=== PATIENT | female | born 1935 | race Caucasian/White ===

== ENCOUNTER → 2017-12-13 10:25 | Outpatient (CLI) | payer SELFPAY ==
[2017-12-13 12:48] LABS: HCT 40.7 % (36.0-46.0); HGB 12.9 g/dL (12.0-15.5); Mean Corp. HGB Concentration 31.7 g/dL (32.0-36.0); Mean Corpuscular Hemoglobin 29.7 pg (27.0-33.0); Mean Corpuscular Volume 93.8 fL (80-95); Mean Platelet Volume 11.9 fL (8.0-11.0); Platelet Count 283 x1000/uL (130-400); RBC 4.34 m/cumm (4.00-5.20); RBC Distribution Width 14.3 % (11.7-14.6); White Blood Cell Count 8.63 k/cumm (4.4-10.8)
[2017-12-13 13:00] LABS: Iron 57 ug/dL (50-175)
[2017-12-13 13:13] LABS: Ferritin 290 ng/mL (8-388)
[2017-12-13 13:22] LABS: Prothrombin Time 9.4 sec (9.3-10.8)
== END ==
PROVIDERS: PCP Family Medicine; Visit Provider Family Medicine
DX: D64.9 Anemia, unspecified (principal); D50.9 Iron deficiency anemia, unspecified; I48.91 Unspecified atrial fibrillation; Z79.01 Long term (current) use of anticoagulants
CPT/HCPCS: 36415; 85027; 82728; 83540; 85610

== ENCOUNTER → 2017-12-16 04:27 | Outpatient (CLI) | payer SELFPAY ==
[2017-12-16 11:22] LABS: INR 1.1 (1.0-3.5); Prothrombin Time 11.2 sec (9.3-10.8)
[2017-12-16 11:27] LABS: Hemoglobin A1C 6.2 % (4.5-6.2)
[2017-12-16 11:30] LABS: Anion Gap 12.1 mmol/L (3-11); BUN 18 mg/dL (7-18); CO2 27.9 mmol/L (21.0-32.0); CREATININE 0.84 mg/dL (0.55-1.02); Calcium 9.1 mg/dL (8.5-10.1); Chloride 103 mmol/L (98-107); Glucose 231 mg/dL (70-100); Potassium 4.1 mmol/L (3.5-5.1); Sodium 143 mmol/L (136-145)
[2017-12-16 22:43] LABS: T3, Total 96 ng/dl (97-169)
== END ==
PROVIDERS: PCP Family Medicine; Visit Provider Family Medicine
DX: E11.9 Type 2 diabetes mellitus without complications (principal); I10 Essential (primary) hypertension; I48.91 Unspecified atrial fibrillation; Z79.01 Long term (current) use of anticoagulants; R94.6 Abnormal results of thyroid function studies
CPT/HCPCS: 36415; 80048; 83036; 84439; 84480; 85610

== ENCOUNTER → 2017-12-19 02:56 | Outpatient (CLI) | payer SELFPAY ==
[2017-12-19 11:11] LABS: Prothrombin Time 28.2 sec (9.3-10.8)
== END ==
PROVIDERS: PCP Family Medicine; Visit Provider Family Medicine
DX: I48.91 Unspecified atrial fibrillation (principal); Z79.01 Long term (current) use of anticoagulants
CPT/HCPCS: 36415; 85610

== ENCOUNTER 2017-12-27 02:36 | Outpatient (CLI) | payer SELFPAY ==
[2017-12-27 12:32] LABS: INR 7.6 (1.0-3.5); Prothrombin Time 68.6 sec (9.3-10.8)
== END 2017-12-27 02:56 ==
PROVIDERS: PCP Family Medicine; Visit Provider Family Medicine
DX: I48.91 Unspecified atrial fibrillation (principal); Z79.01 Long term (current) use of anticoagulants
CPT/HCPCS: 36415; 85610

== ENCOUNTER 2017-12-30 03:40 | Outpatient (CLI) | payer SELFPAY ==
[2017-12-30 11:55] LABS: INR 3.5 (1.0-3.5); Prothrombin Time 32.8 sec (9.3-10.8)
== END 2017-12-30 04:00 ==
LOC: LBO 08:06 → LOS 08:10
PROVIDERS: PCP Family Medicine; Visit Provider Family Medicine
DX: I48.91 Unspecified atrial fibrillation (principal); Z79.01 Long term (current) use of anticoagulants
CPT/HCPCS: 36415; 85610

== ENCOUNTER 2018-01-06 01:38 | Outpatient (CLI) | payer SELFPAY ==
[2018-01-06 11:54] LABS: INR 1.3 (1.0-3.5); Prothrombin Time 12.6 sec (9.3-10.8)
== END 2018-01-06 01:58 ==
PROVIDERS: PCP Family Medicine; Visit Provider Family Medicine
DX: I48.91 Unspecified atrial fibrillation (principal); Z79.01 Long term (current) use of anticoagulants
CPT/HCPCS: 36415; 85610

== ENCOUNTER 2018-01-11 02:45 | Outpatient (CLI) | payer SELFPAY ==
[2018-01-11 10:50] LABS: INR 2.6 (1.0-3.5); Prothrombin Time 24.7 sec (9.3-10.8)
== END 2018-01-11 03:05 ==
PROVIDERS: PCP Family Medicine; Visit Provider Family Medicine
DX: I48.91 Unspecified atrial fibrillation (principal); Z79.01 Long term (current) use of anticoagulants
CPT/HCPCS: 36415; 85610

== ENCOUNTER 2018-01-18 02:24 | Outpatient (CLI) | payer SELFPAY ==
[2018-01-18 11:29] LABS: INR 3.9 (1.0-3.5)
== END 2018-01-18 02:44 ==
PROVIDERS: PCP Family Medicine; Visit Provider Family Medicine
DX: I48.91 Unspecified atrial fibrillation (principal); Z79.01 Long term (current) use of anticoagulants
CPT/HCPCS: 36415; 85610

== ENCOUNTER 2018-01-25 02:08 | Outpatient (CLI) | payer SELFPAY ==
[2018-01-25 11:45] LABS: Prothrombin Time 37.6 sec (9.3-10.8)
== END 2018-01-25 02:28 ==
PROVIDERS: PCP Family Medicine; Visit Provider Family Medicine
DX: I48.91 Unspecified atrial fibrillation (principal); Z79.01 Long term (current) use of anticoagulants
CPT/HCPCS: 36415; 85610

== ENCOUNTER 2018-02-02 02:10 | Outpatient (CLI) | payer MEDICARE, SELFPAY ==
[2018-02-02 11:38] LABS: Prothrombin Time 36.9 sec (9.3-10.8)
== END 2018-02-02 02:30 ==
PROVIDERS: PCP Family Medicine; Visit Provider Family Medicine
DX: I48.91 Unspecified atrial fibrillation (principal); Z79.01 Long term (current) use of anticoagulants
CPT/HCPCS: 36415; 85610

== ENCOUNTER 2018-02-03 01:51 | Outpatient (CLI) | payer SELFPAY, MEDICARE ==
[2018-02-03 11:27] LABS: INR 3.1 (1.0-3.5); Prothrombin Time 28.7 sec (9.3-10.8)
== END 2018-02-03 02:11 ==
PROVIDERS: PCP Family Medicine; Visit Provider Family Medicine
DX: I48.91 Unspecified atrial fibrillation (principal); Z79.01 Long term (current) use of anticoagulants
CPT/HCPCS: 36415; 85610

== ENCOUNTER 2018-02-10 02:45 | Outpatient (CLI) | payer SELFPAY ==
[2018-02-10 11:31] LABS: INR 1.5 (1.0-3.5); Prothrombin Time 14.5 sec (9.3-10.8)
== END 2018-02-10 03:05 ==
PROVIDERS: PCP Family Medicine; Visit Provider Family Medicine
DX: I48.91 Unspecified atrial fibrillation (principal); Z79.01 Long term (current) use of anticoagulants
CPT/HCPCS: 36415; 85610

== ENCOUNTER 2018-03-03 02:15 | Outpatient (CLI) | payer SELFPAY ==
[2018-03-03 11:33] LABS: INR 1.4 (1.0-3.5); Prothrombin Time 13.3 sec (9.3-10.8)
== END 2018-03-03 02:35 ==
PROVIDERS: PCP Family Medicine; Visit Provider Family Medicine
DX: I48.91 Unspecified atrial fibrillation (principal); Z79.01 Long term (current) use of anticoagulants
CPT/HCPCS: 36415; 85610

== ENCOUNTER 2018-03-10 15:32 | Outpatient (CLI) | payer SELFPAY ==
[2018-03-10 11:12] LABS: INR 3.2 (1.0-3.5); Prothrombin Time 29.7 sec (9.3-10.8)
== END 2018-03-10 15:52 ==
PROVIDERS: PCP Family Medicine; Visit Provider Family Medicine
DX: I48.91 Unspecified atrial fibrillation (principal); Z79.01 Long term (current) use of anticoagulants
CPT/HCPCS: 36415; 85610

== ENCOUNTER 2018-03-23 07:13 | Outpatient (CLI) | payer MEDICARE, SELFPAY ==
[2018-03-23 11:45] LABS: INR 1.7 (1.0-3.5); Prothrombin Time 16.3 sec (9.3-10.8)
== END 2018-03-23 07:33 ==
LOC: LBO 08:28 → LOS 08:29
PROVIDERS: PCP Family Medicine; Visit Provider Family Medicine
DX: I48.91 Unspecified atrial fibrillation (principal); Z79.01 Long term (current) use of anticoagulants
CPT/HCPCS: 36415; 85610

== ENCOUNTER 2018-03-31 02:30 | Outpatient (CLI) | payer MEDICARE, SELFPAY ==
[2018-03-31 12:12] LABS: INR 2.7 (1.0-3.5); Prothrombin Time 25.9 sec (9.3-10.8)
== END 2018-03-31 02:50 ==
PROVIDERS: PCP Family Medicine; Visit Provider Family Medicine
DX: I48.91 Unspecified atrial fibrillation (principal); Z79.01 Long term (current) use of anticoagulants
CPT/HCPCS: 36415; 85610

== ENCOUNTER 2018-04-14 02:11 | Outpatient (CLI) | payer MEDICARE, SELFPAY ==
[2018-04-14 11:47] LABS: INR 3.7 (1.0-3.5)
== END 2018-04-14 02:31 ==
PROVIDERS: PCP Family Medicine; Visit Provider Family Medicine
DX: I48.91 Unspecified atrial fibrillation (principal); Z79.01 Long term (current) use of anticoagulants
CPT/HCPCS: 36415; 85610

== ENCOUNTER 2018-04-21 02:31 | Outpatient (CLI) | payer SELFPAY ==
[2018-04-21 11:47] LABS: INR 4.3 (1.0-3.5)
== END 2018-04-21 02:51 ==
PROVIDERS: PCP Family Medicine; Visit Provider Family Medicine
DX: I48.91 Unspecified atrial fibrillation (principal); Z79.01 Long term (current) use of anticoagulants
CPT/HCPCS: 36415; 85610

== ENCOUNTER 2018-04-27 11:33 | Outpatient (CLI) | payer MEDICARE, SELFPAY ==
[2018-04-27 13:05] LABS: HCT 41.1 % (36.0-46.0); HGB 13.2 g/dL (12.0-15.5); Mean Corp. HGB Concentration 32.1 g/dL (32.0-36.0); Mean Corpuscular Hemoglobin 29.9 pg (27.0-33.0); Mean Corpuscular Volume 93.2 fL (80-95); Mean Platelet Volume 11.1 fL (8.0-11.0); Platelet Count 342 x1000/uL (130-400); RBC 4.41 m/cumm (4.00-5.20); RBC Distribution Width 13.8 % (11.7-14.6); White Blood Cell Count 10.68 k/cumm (4.4-10.8)
[2018-04-27 13:21] LABS: INR 1.7 (0.9-1.1); Prothrombin Time 16.6 sec (9.3-11.0)
[2018-04-27 13:39] LABS: Iron 101 ug/dL (50-175); Total Iron Binding Capacity 190 ug/dL (250-450); Transferrin Sat 53 % (15-50)
[2018-04-27 13:40] LABS: ALT 24 U/L (12-78); AST 24 U/L (15-37); Albumin 3.4 g/dL (3.4-5.0); Alkaline Phosphatase 79 U/L (46-116); Anion Gap 11.4 mmol/L (3-11); BUN 22 mg/dL (7-18); Bilirubin, Total 0.7 mg/dL (0.2-1.0); CO2 26.6 mmol/L (21.0-32.0); Calcium 9.4 mg/dL (8.5-10.1); Chloride 104 mmol/L (98-107); Glucose 185 mg/dL (70-100); Potassium 4.8 mmol/L (3.5-5.1); Sodium 142 mmol/L (136-145); Total Protein 7.3 g/dL (6.4-8.2)
[2018-05-01 10:33] LABS: Ferritin 477 ng/mL (8-388)
== END 2018-04-27 11:53 ==
PROVIDERS: PCP Family Medicine; Visit Provider Family Medicine
DX: D64.9 Anemia, unspecified (principal); I48.91 Unspecified atrial fibrillation; Z86.2 Personal history of diseases of the blood and blood-forming organs and certain disorders involving the immune mechanism
CPT/HCPCS: 36415; 80053; 85027; 82728; 83540; 83550; 85610

== ENCOUNTER 2018-05-04 01:25 | Outpatient (CLI) | payer SELFPAY ==
[2018-05-04 11:18] LABS: INR 1.5 (0.9-1.1); Prothrombin Time 15.4 sec (9.3-11.0)
== END 2018-05-04 01:45 ==
PROVIDERS: PCP Family Medicine; Visit Provider Family Medicine
DX: I48.91 Unspecified atrial fibrillation (principal); Z79.01 Long term (current) use of anticoagulants
CPT/HCPCS: 36415; 85610

== ENCOUNTER 2018-05-10 02:11 | Outpatient (CLI) | payer MEDICARE, SELFPAY ==
[2018-05-10 10:56] LABS: INR 1.6 (0.9-1.1); Prothrombin Time 16.2 sec (9.3-11.0)
== END 2018-05-10 02:31 ==
PROVIDERS: PCP Family Medicine; Visit Provider Family Medicine
DX: I48.91 Unspecified atrial fibrillation (principal); Z79.01 Long term (current) use of anticoagulants
CPT/HCPCS: 36415; 85610

== ENCOUNTER 2018-05-31 02:02 | Outpatient (CLI) | payer MEDICARE, SELFPAY ==
[2018-05-31 11:32] LABS: Prothrombin Time 19.6 sec (9.3-11.0)
[2018-05-31 11:37] LABS: INR 1.9 (0.9-1.1)
== END 2018-05-31 02:22 ==
PROVIDERS: PCP Family Medicine; Visit Provider Family Medicine
DX: I48.91 Unspecified atrial fibrillation (principal); Z79.01 Long term (current) use of anticoagulants
CPT/HCPCS: 36415; 85610